=== PATIENT | male | born 2000 | race Caucasian/White ===

== ENCOUNTER 2021-07-04 11:28 | Day surgery (SDC) | payer OTHER ==
--- NOTE | 2021-07-04 15:43 | NUR ---
PATIENT C/O DIZZINESS AND BLURRIED VISION THAT PASSED QUICKLY. PATIENT WAITED 30MINUTES AND PATIENT SAID THAT SYMPTOMS HAD SUBSIDED. MIMI GAVE VERBAL APPROVAL FOR STUDENT NURSE TO ADMINISTER SHOT IM ON 07/04/21 AT 1500.
== END 2021-07-04 15:43 | disposition home or self-care (01) ==
LOC: ATC 11:28
DX: Z20.2 Contact with and (suspected) exposure to infections with a predominantly sexual mode of transmission (principal)
CPT/HCPCS: 96372; J0561